=== PATIENT | male | born 1990 | race Caucasian/White ===

== ENCOUNTER 2020-03-11 10:36 | Emergency (ER) | payer OTHER, SELFPAY ==
[2020-03-11] VITALS (26 sets, daily range): BP systolic 108–153; BP diastolic 59–127; PULSE 73–165; RESP 9–21; TEMP 36.8; O2SAT 96–100
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
[2020-03-11] MEDS: Omnipaque 350 MG/ML 100 ML BTL IJ (10:52)
[2020-03-11] MEDS: Normal Saline Flush 10 ML SYR IVP ×2 (10:53→11:22)
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
[2020-03-11 11:07] LABS: Absolute Basophil Count 0.04 k/cumm (0.0-0.2); Absolute Eosinophil Count 0.06 k/cumm (0.0-0.7); Absolute Lymphocyte Count 1.09 k/cumm (1.2-3.4); Absolute Monocyte Count 0.46 k/cumm (0.11-0.7); Absolute Neutrophil Count 4.39 k/cumm (1.2-6.7); Basophils % 0.7; HCT 43.7 % (40.0-50.0); HGB 15.1 g/dL (13.5-17.5); Mean Corp. HGB Concentration 34.6 g/dL (32.0-36.0); Mean Corpuscular Hemoglobin 29.4 pg (27.0-33.0); Mean Corpuscular Volume 85.2 fL (80-95); Mean Platelet Volume 10.4 fL (8.0-11.0); Monocytes % 7.6; Neutrophils % 72.7; Platelet Count 273 x1000/uL (130-400); RBC 5.13 m/cumm (4.50-6.00); RBC Distribution Width 12.8 % (11.8-14.1); White Blood Cell Count 6.04 k/cumm (4.4-10.8)
[2020-03-11] MEDS: LORazepam 2 MG/ML VIAL 1 MG IVP (11:07)
[2020-03-11 11:20] LABS: ALT 88 U/L (16-63); AST 59 U/L (15-37); Albumin 4.1 g/dL (3.4-5.0); Alkaline Phosphatase 74 U/L (46-116); Anion Gap 13.8 mmol/L (3-11); BUN 18 mg/dL (7-18); Bilirubin, Total 1.3 mg/dL (0.2-1.0); CO2 26.2 mmol/L (21.0-32.0); CREATININE 1.66 mg/dL (0.70-1.30); Calcium 9.1 mg/dL (8.5-10.1); Chloride 97 mmol/L (98-107); Estimated GFR 49.22 (mL/min/1.73m2); Glucose 96 mg/dL (74-106); Sodium 137 mmol/L (136-145); Total Protein 7.1 g/dL (6.4-8.2)
[2020-03-11 11:21] LABS: Troponin I < 0.05 ng/mL (<0.06)
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
[2020-03-11 12:17] LABS: Tricyclic Antidepressants Negative (Negative)
[2020-03-11 12:24] LABS: *AMPHETAMINES SCREEN URINE Negative (Negative); *BARBITURATES SCREEN URINE Negative (Negative); *BENZODIAZEPINES SCREEN URINE Negative (Negative); Cannabinoids THC POSITIVE (Negative); Cocaine Screen,Urine POSITIVE (Negative); METHADONE URINE SCREEN Negative (Negative); OPIATES URINE SCREEN Negative (Negative)
== END 2020-03-11 13:32 | disposition home or self-care (01) ==
PROVIDERS: Emergency Provider Student in an Organized Health Care Education/Training Program; PCP Nurse Practitioner
DX: T71.192A Asphyxiation due to mechanical threat to breathing due to other causes, intentional self-harm, initial encounter (principal); X83.8XXA Intentional self-harm by other specified means, initial encounter; Y92.143 Cell of prison as the place of occurrence of the external cause; F41.8 Other specified anxiety disorders; F11.20 Opioid dependence, uncomplicated; R45.851 Suicidal ideations; R56.9 Unspecified convulsions
CPT/HCPCS: 36415; 70498; 80053; 80307; 86850; 86900; 86901; 93005; 96374; 99285; 70450; 72125; 84484; 85025; 93010; J2060; J3490